=== PATIENT | male | born 1980 | race Hispanic/Latino ===

== ENCOUNTER 2018-06-28 07:38 | Observation (INO) | payer SELFPAY ==
--- NOTE | 2018-06-28 07:56 | ED.PDOC ---
History of Present Illness - General Chief Complaint: General Stated Complaint: Feels like his heart is racing, SOB Time Seen by Provider: 06/28/18 07:48 Source: patient, RN notes reviewed Exam Limitations: language barrier - History of Present Illness Initial Comments: The patient presents to the emergency department with complaint of shortness of breath as well as chest pain. The patient states that this started several hours ago and has gotten progressively worse. The patient states that the chest pain is centralized in nature and without radiation. He states that ambulation worsens this issue but denies alleviating factors. The patient also notes that his shortness of breath increases with ambulation. The patient also notes lightheadedness with his palpitations as well as chest pain. The patient has no other complaints at this time. It should be noted that hospital staff used to provide translation due at this time due to our inability to get the electronic translation service not working. Timing/Duration: 1-3 hours Severity: moderate Improving Factors: nothing Worsening Factors: nothing Associated Symptoms: chest pain, shortness of breath Allergies/Adverse Reactions: Allergies NO KNOWN ALLERGY Allergy (Verified 06/28/18 07:47) Home Medications: Ambulatory Orders Cholesterol Med 1 each PO DAILY 06/28/18 Review of Systems - Review of Systems Constitutional: States: malaise, weakness EENTM: States: no symptoms reported Respiratory: States: see HPI Cardiology: States: see HPI Gastrointestinal/Abdominal: States: no symptoms reported Genitourinary: States: no symptoms reported Musculoskeletal: States: no symptoms reported Skin: States: no symptoms reported Neurological: States: weakness Endocrine: States: no symptoms reported Hematologic/Lymphatic: States: no symptoms reported Past Medical History (General) - Patient Medical History Hx Stroke: No Hx Cardiac Disorders: Yes - hypercholesterolemia Hx Congestive Heart Failure: No Hx Diabetes: No - Vaccination History Hx Influenza Vaccination: No Hx Pneumococcal Vaccination: No - Social History Hx Tobacco Use: No Hx Alcohol Use: No - Social use Hx Substance Use: No Family Medical History - Family History Father Family History: No Known Living Status: Still Living Physical Exam - Physical Exam General Appearance: Anxious, Well Developed, Well Groomed, Well Hydrated, Well Nourished Ears, Nose, Throat: hearing grossly normal Neck: non-tender, full range of motion Respiratory: chest non-tender, lungs clear, normal breath sounds Cardiovascular/Chest: normal peripheral pulses, regular rate, rhythm Gastrointestinal/Abdominal: normal bowel sounds, non tender, soft Back Exam: normal inspection Extremity: normal range of motion Neurologic: alert, oriented x 3 Skin Exam: normal color Progress - Progress Progress: 06/28/18 08:04 DDX: PNEUMONIA, BRONCHITIS, PULMONARY EMBOLISM, ASTHMA, PULMONARY EDEMA, PLEURAL EFFUSION, ACUTE MYOCARDIAL INFARCTION, UPPER RESPIRATORY INFECTION, SINUSITIS, ALLERGIES. PATIENT PRESENTATION CONSISTENT WITH DYSPNEA AT THIS TIME. WILL ORDER CBC TO EVALUATE FOR ANEMIA/WBC ELEVATION. PATIENT WILL RECEIVE BMP TO EVALUATE FOR ELECTROLYTE DERANGEMENT/DEHYDRATION. PATIENT WILL RECEIVE EKG/TROPONIN TO EVALUATE FOR ATYPICAL ACS. PATIENT WILL HAVE IMAGING OF THORAX TO EVALUATE FOR PULMONARY PATHOLOGY. PATIENT WILL BE MONIITORED WHILE IN THE ED. DISPO WILL BE DEPENDENT UPON FINDINGS DURING WORK UP. 06/28/18 08:47 THE PATIENT IS RESTING COMFORTABLY AT THIS TIME. HE IS W/O ACUTE COMPLAINTS. I WILL CONTINUE TO MONITOR HIM FOR CLINICAL CHANGES 06/28/18 11:18 THE PATIENT REMAINS WELL AT THIS TIME. HE HAS BEEN ADVISED OF ALL LAB WELL RADIOLOGICAL RESULTS. THE PATIENT IS ADVISED THAT HE REQUIRES OVERNIGHT OBSERVATION. HE IS IN AGREEMENT W/ THIS PLAN. [employer] HAS PROVIDED TRANSLATION SERVICES. - EKG/XRAY/CT EKG: Sinus, nonspecific ST T wave Chg Comments: AXIS NL, TN INTERVAL WNL. CT Ordered: Yes - CTA CHEST NEGATIVE FOR PE PER REPORT - Consult/PCP Time Called: 11:15 Consult/PCP: MR. FRAIRE([employer]ISH[employer]) IS ACCEPTING AT THIS TIME. - Additional EKG/XRAY/Consults EKG #2: Sinus, nonspecific ST T wave Chg Comments: AXIS NL, TN INTERVAL WNL. Departure - Departure Clinical Impression: Chest pain Qualifiers: Chest pain type: unspecified Qualified Code(s): R07.9 - Chest pain, unspecified Dyspnea Qualifiers: Dyspnea type: dyspnea on exertion Qualified Code(s): R06.09 - Other forms of dyspnea Disposition: Admit Patient Condition: Fair Home Medications: Ambulatory Orders Cholesterol Med 1 each PO DAILY 06/28/18
[2018-06-28] MEDS ORDERED: SODIUM CHLORIDE 0.9% 1000ML 1,000 ML IVS ONE (08:15)
[2018-06-28] MEDS ORDERED: POTASSIUM CHLORIDE 20 MEQ TAB PO ONE (08:46)
--- NOTE | 2018-06-28 09:26 | CT ---
Study: CT angiography of the chest, pulmonary embolus protocol. Indication: dyspnea Technique: Axial CT images were acquired through the chest after intravenous administration of contrast utilizing the CT angiography, pulmonary embolus protocol. Computer-generated 3D reconstructions (MIPS) were performed and reviewed. This exam was performed according to our departmental dose-optimization program, which includes automated exposure control, adjustment of the mA and/or kV according to patient size and/or use of iterative reconstruction technique. Comparison: None. Findings: No CTA evidence of pulmonary emboli. Heart size normal. No pathologically enlarged mediastinal or hilar lymphadenopathy. Lungs clear. No acute osseous abnormality. Impression: No CT evidence of pulmonary embolus. Lungs clear. Electronically signed by: Jose Amado MD 06/28/2018 9:25 AM CDT
--- NOTE | 2018-06-28 11:41 | HP ---
SUPERVISING PHYSICIAN: Dar Odom MD CHIEF COMPLAINT: Chest pain. HISTORY OF PRESENT ILLNESS: This is a 37-year-old male patient who came to the Emergency Room due to shortness of breath as well as chest discomfort. He stated that several hours ago, he started to have what felt like almost palpitations, some chest pressure and some associated shortness of breath. The pain stayed in the same location and did not radiate. There was no diaphoresis with the pain either. Nothing in particular made it better or worse, so he came to the Emergency Room. It should be noted the patient is Mong[place]ian speaking only and the nurse is translating for us at this time. In the Emergency Room, his workup included cardiac enzymes, chest x-ray and EKG. All these remained normal. He did end up having a CT angiogram to rule out pulmonary embolism, which was also negative. He apparently takes cholesterol type medication from [place], but does not have any other significant medical history. He denies any family history of cardiac disease. He did have a slightly elevated lactate in the Emergency Room and was given 1 liter of normal saline in addition to the fact that potassium was low at 3.3, so he was given oral potassium. He was referred for admission for observation with chest pain rule out. At the time of examination, the patient is alert and oriented. He does indicate that he has had some recent stressors such as his living and working situation. Upon questioning, it appears this is causing some anxiety. I did ask him if he had any history of anxiety attacks and he says in the past he has had a couple, but he had been able to talk himself down. PAST MEDICAL HISTORY: Hyperlipidemia. PAST SURGICAL HISTORY: None. CURRENT MEDICATIONS: As stated before, he is taking the cholesterol medicine from [place]. ALLERGIES: NO KNOWN DRUG ALLERGIES. FAMILY HISTORY: He does not know of any significant family history with his parents or siblings. SOCIAL HISTORY: Nonsmoker, no illicit drugs. He occasionally drinks, but not heavily. REVIEW OF SYSTEMS: CONSTITUTIONAL: No fever or chills. No recent weight loss or weight gain. HEENT: No headaches, vision changes, ear pain, nasal congestion or throat pain. RESPIRATORY: No cough, hemoptysis or pleuritic chest pain. CARDIOVASCULAR: Positive for chest pain and palpitations as described above. No peripheral edema. There was some dyspnea. GASTROINTESTINAL: No nausea, vomiting, diarrhea, constipation or abdominal pain. GENITOURINARY: No dysuria, frequency or flank pain. HEMATOLOGIC: No easy bruising and no transfusion reaction. MUSCULOSKELETAL: No back pain, joint pain or joint swelling. ENDOCRINE: No polydipsia, polyuria, polyphagia. No heat or cold intolerance. NEUROLOGIC: No syncope, paresthesias, seizures. PHYSICAL EXAMINATION: VITAL SIGNS: Blood pressure 142/97. Heart rate 69. Respiratory rate 20. Temperature 98.0. Oxygen saturation 99%. GENERAL: Mr. Rueda is a 37-year-old male patient in no active distress currently. HEENT: Normocephalic, atraumatic. Pupils are equal and reactive. No nasal drainage. Throat with moist mucosa. NECK: Supple. Midline trachea. No jugular venous distention. CHEST: Symmetrical with equal rise and fall of the chest with inspiration and expiration. Lung sounds are clear to auscultation. CARDIOVASCULAR: Regular rate and rhythm. Normal S1, S2. ABDOMEN: Soft. Positive bowel sounds. GENITOURINARY: Deferred. EXTREMITIES: Lower extremities with no edema. Pulses 2+. Capillary refill is less than 2 seconds. NEUROLOGIC: The patient is alert and oriented. Moves all extremities. Extraocular movements are intact. LABORATORY: Labs are reviewed via the EMR as well as the CT of the chest which was unremarkable. As noted in history of present illness, potassium was low at 3.3, mildly decreased CO2 at 20 and lactate 2.9. ASSESSMENT: 1. Chest pain, rule out acute coronary syndrome. 2. Anxiety. 3. Hyperlipidemia. 4. Hypokalemia. PLAN: We will place on chest pain protocol with serial EKGs as well as cardiac enzymes. Additionally, given the fact that I feel like some of this is due to anxiety, I am going to give him a Xanax and see how he does with that. He does have a slightly high blood pressure, but he seems to be a little bit anxious at this point. We will see what the Xanax does first before I give him any kind of antihypertensive. We will check his lipid profile in the morning as well. He does not have a local healthcare provider although he does live in the area, so if everything remains negative, he can be discharged tomorrow with recommendations to followup with a primary care provider. We will recheck his potassium level tomorrow as well. #[id number] [facility]
[2018-06-28] MEDS ORDERED: NITROGLYCERIN 0.4 MG 25 EA TAB SL PRN (12:29)
[2018-06-28] MEDS ORDERED: ACETAMINOPHEN 325 MG TAB PO PRN (12:29)
[2018-06-28] MEDS ORDERED: MORPHINE SULFATE INJ 10 MG/ML VIAL IV PRN (12:29)
[2018-06-28] MEDS ORDERED: SODIUM CHLORIDE 0.9% (FLUSH) 10 ML SYG IV PRN (12:29)
[2018-06-28] MEDS ORDERED: IV SET AND CAP CHANGE INJ INJ SCH (12:30)
[2018-06-28] MEDS ORDERED: ALPRAZolam 0.25 MG TAB PO PRN (12:31)
[2018-06-28] MEDS ORDERED: KETOROLAC TROMETHAMINE INJ 30 MG/ML VIAL IV ONE (13:07)
[2018-06-28] MEDS: SODIUM CHLORIDE 0.9% (FLUSH) 10 ML SYG IV SCH (21:17)
[2018-06-29] MEDS: SODIUM CHLORIDE 0.9% (FLUSH) 10 ML SYG IV SCH (08:31)
[2018-06-29] MEDS ORDERED: ASPIRIN TABLET 325 MG TAB PO SCH (09:00)
[2018-06-29 10:17] VITALS: BP 127/75; TEMP 97.8; O2SAT 99
--- NOTE | 2018-07-04 08:32 | DS ---
SUPERVISING PHYSICIAN: Dar Odom MD ADMISSION DIAGNOSIS: 1. Chest pain, rule out acute coronary syndrome. 2. Anxiety. 3. Hyperlipidemia. 4. Hypokalemia. DISCHARGE DIAGNOSIS: 1. Chest pain without evidence of acute myocardial infarction with EKGs without any ST or T-wave changes and all troponins being within normal limits, felt to be more likely related to acute anxiety attack. 2. History of anxiety, possibly responsible for #1. 3. Hyperlipidemia. 4. Hypokalemia with normal potassium at discharge. REASON FOR HOSPITALIZATION : Mr. Rueda is a 37-year-old male patient who came to the Emergency Room on 06/28/18 complaining of shortness of breath as well as chest discomfort. He stated that several hours prior to arrival, he started to have what felt like palpitations, some chest pressure and some associated shortness of breath. The pain stayed in the same location and did not radiate. There was no diaphoresis with the pain. Nothing in particular made it better or worse, so he came to the Emergency Room. It should be noted the patient is Scottish speaking only and the nurse in the Emergency Room was translating for us at time of admission. Workup in the Emergency Room included cardiac enzymes, chest x-ray and EKG, all of which were within normal limits. He also had a CT angiogram to rule out pulmonary embolism, which was also negative. He apparently takes cholesterol type medication from [place], but does not have any other significant medical history. He denies any family history of cardiac disease. He did have a slightly elevated lactate in the Emergency Room and was given 1 liter of normal saline in addition to the fact that potassium was low at 3.3, so he was given oral potassium. 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 He was referred for admission for observation with chest pain rule out. At the time of examination, the patient was alert and oriented. He also noted that he has had some recent stressors in his living and working situation and felt that possibly he was having an anxiety attack. I did ask him if he had any history of anxiety attacks and he says in the past he has had a couple, but he had been able to talk himself down. He was placed in observation in stable condition. LABORATORY: Labs showed CBC with normal white count of 6,400 with no left shift. Hemoglobin 15.6, hematocrit 46.3. Chemistries initially on admission showed a low potassium of 3.3. Anion gap normal at 15.3, BUN 8, creatinine 1.12 , lactic acid 2.9, calcium 9.6. He had 3 sets of troponins, all less than 0.02. After fluids and prior to discharge, his electrolytes had normalized with potassium 3.8, glucose 89, BUN 1.11, calcium 9.2. He did have slightly high C-reactive protein of 1.4. Lipid panel showed triglycerides to be elevated at 401. Otherwise, cholesterol, HDL and LDL were within normal limits. TSH was normal at 2.8. RADIOLOGY: CT of the chest in the Emergency Department to rule out pulmonary embolism per radiologic interpretation showed no CT evidence of pulmonary emboli noted. There was no pathological enlargement of the mediastinum or hilar lymphadenopathy. Lungs were clear. There were no acute osseus abnormality. Please see that report for full details. EKG: EKGs showed normal sinus rhythm without any ST or T-wave changes to indicate any acute ischemia or acute myocardial injury. HOSPITAL COURSE: Mr. Rueda was admitted on 06/28/18 as noted above for chest pain rule out which was felt to be associated with a panic attack. He was also somewhat dehydrated and was given some fluids in the Emergency Room prior to admission and placed in observation. The patient had no recurrence of chest pain, had no changes in EKGs from admission and remained without any chest pain and was felt to be stable and to be discharged to followup in the outpatient setting. PLAN: Mr. Rueda was discharged on 06/29/18 with instructions to followup with [facility] in the following week to see Dr. Guillen as well as make arrangements for possible cardiac followup. He was to take his home medications as previously instructed and to take new medications as directed. He was to return to the hospital should he have any concerning symptoms or return of his chest pains. Diet at discharge was low cholesterol, low fat diet. Activity to increase as tolerated. DISCHARGE MEDICATIONS: 1. Nitro tablets 0.4 mg 1 subsequently q.5 minutes 3 times as needed for chest pain and call 911. 2. Aspirin 325 mg daily [id number]. Condition on discharge was stable and improved. [facility][id number] [facility]
== END 2018-06-29 13:00 | disposition home or self-care (01) ==
LOC: ER 07:38 → MS 11:39
PROVIDERS: ADMIT Nurse Practitioner; ATTEND Nurse Practitioner Family
DX: R07.89 Other chest pain (principal); F41.9 Anxiety disorder, unspecified; E78.5 Hyperlipidemia, unspecified; E87.6 Hypokalemia; R06.02 Shortness of breath; Z79.899 Other long term (current) drug therapy
CPT/HCPCS: 96374; J1885; J7030; 80048 ×2; 82553 ×3; 80061; 36415 ×6; 86140; 85025; 82550 ×3; 85651; 84443; 84484 ×3; 83605; 71275; 99285; 93005 ×3; G0378